=== PATIENT | male | born 1975 | race Caucasian/White ===

== ENCOUNTER 2024-12-02 14:56 | Emergency (ER) | payer MEDICAID, SELFPAY ==
[2024-12-02 15:04] VITALS: BP 143/97; PULSE 110; RESP 20; TEMP 36.8; O2SAT 95
--- NOTE | 2024-12-02 15:10 | PD.EDWOUND ---
ED Wound/Laceration-RME/HPI General Chief Complaint: Wound/Laceration Stated Complaint: Laceration to right arm Time Seen by Provider: 12/02/24 14:58 Arrival date/time: 12/02/24 14:56 RME / HPI RME / HPI narrative: 49-year-old male patient came in for evaluation regarding laceration to the right forearm. Patient was standing something, and sandpaper fell off resulting into 3 cm gaping laceration forearm volar aspect. Patient is able to bend and extend the wrist and the fingers without any limitation denies any other complaints. Incident happened few minutes prior to ER visit. Related Data Home Medications ?Medication ?Instructions ?Recorded ?Confirmed alprazolam 1 mg tablet 1 mg PO BID 08/05/17 06/07/21 amlodipine 5 mg tablet 5 mg PO QDAY 04/03/20 06/07/21 lisinopril 10 mg tablet 10 mg PO QDAY 04/03/20 06/07/21 paroxetine HCl 10 mg tablet 10 mg PO QDAY 04/03/20 06/07/21 Previous Rx's ?Medication ?Instructions ?Recorded ibuprofen 600 mg tablet 600 mg PO Q6H #30 tabs 11/21/23 cephalexin 500 mg capsule 500 mg PO TID 7 days #21 caps 12/02/24 ibuprofen 800 mg tablet 800 mg PO Q8H PRN pain #30 tabs 12/02/24 Allergies Allergy/AdvReac Type Severity Reaction Status Date / Time No Known Allergies Allergy Unverified 12/02/24 14:59 Review of Systems Review of Systems Narrative Review of Systems: Review of system reviewed and within normal limits except mentioned in HPI ED Exam Narrative Physical exam: VITAL SIGNS: Reviewed. GENERAL APPEARANCE: Alert and interactive, follows commands, no acute distress, HEAD AND FACE: Non-traumatic. ENT: PERRL, pink conjunctivitis, eyelid no trauma, Mucous membrane moist. NECK: Supple, nontender, no nuchal rigidity. RECTAL: Deferred. GENITAL: Deferred. NEUROLOGICAL: Gross motor function intact sensory function intact, Appropriate for age. MUSCULOSKELETAL: low back nontender, full range of motion. EXTREMITIES: +4 cm laceration gaping, forearm volar aspect, full range of motion. With the fingers and wrist and elbow SKIN: Color pink, dry, no rash, no lacerations, no abrasions, no contusions. LYMPHATICS: Deferred. Course Quality Measures none Orders Category Date Time Status Ibuprofen Tab [Motrin Tab] Med 12/02/24 15:09 Discontinued 800 mg PO X1 ONE Lidocaine 1% 20 ml [Xylocaine 1% 20 ML] Med 12/02/24 15:09 Discontinued 20 ml INFL X1 ONE TET,DIP/PERT AC (Adult)-Tdap [Boostrix Adult (Tdap) Med 12/02/24 15:09 Discontinued Vacc] 0.5 ml IMI .ONCE ONE Vital Signs Vital signs: Vital Signs Temperature 98.2 F 12/02/24 15:04 Pulse Rate 110 H 12/02/24 15:04 Respiratory Rate 20 12/02/24 15:04 Blood Pressure 143/97 H 12/02/24 15:04 Pulse Oximetry (%) 95 12/02/24 15:04 Oxygen Delivery Method Room Air 12/02/24 15:04 Procedures -ED Laceration Laceration 1: Site: upper extremity Size (cm): 4 Description: linear Depth: simple, single layer Amount of anesthesia used (mL): 6 Pre-repair: wound explored, irrigated extensively and deep structures intact Skin layer closed with: nylon Suture size (cm): 4-0 Number of sutures: 10 Technique: simple, interrupted Wound / Laceration MDM Narrative MDM Narrative:: 49-year-old male patient came in for evaluation regarding laceration to the right forearm. Patient was standing something, and sandpaper fell off resulting into 3 cm gaping laceration forearm volar aspect. Patient is able to bend and extend the wrist and the fingers without any limitation denies any other complaints. Incident happened few minutes prior to ER visit. Patient received Boostrix and Motrin. Repair and suturing was done by me see procedure notes Patient data External records reviewed:: None Clinical information provided by:: patient Social determinants that could affect healthcare access:: none Patient has the following chronic illnesses:: Hypertension, aanxiety How is presenting disease/condition affected by chronic disease/condition?: uneffected by Evaluation data The following diagnostics were reviewed and interpreted by me:: other (specify) Lab and/or radiology exams considered but not ordered:: None Interpretation Summary: None Medications / Prescriptions Medications or Prescriptions considered but not ordered:: none Medication administrations:: Medication Administration History Discontinued Medications Diphtheria/Tetanus/Acell Pertussis (Diphth,Pertuss(Acell),Tet Vac 0.5 Ml Syr- Adult) 0.5 ml IMi .ONCE ONE Stop: 12/02/24 15:10 Ibuprofen (Ibuprofen Tab 400 Mg Tablet) 800 mg PO X1 ONE Stop: 12/02/24 15:10 Lidocaine HCl (Lidocaine Hcl 1% 20 Ml Vial) 20 ml INFL X1 ONE Stop: 12/02/24 15:10 Motrin and Boostrix Consultations Consultation(s) initiated? (list below): No Diagnosis Wound Differential Diagnosis: laceration, abrasion and avulsion of skin Most likely diagnosis given after review of the tests above:: Forearm laceration Admission Indicated Admission indicated?: not indicated Admission Request Was there a request for admission?: No Disposition Plan Disposition Plan: Discharge Discharge Attestation Discharge Attestation: The patient and all family members were given an opportunity to ask questions and understood the discharge instructions. Discharge instructions specifically effects, indications for sooner follow up or return to the emergency department, and the expected course of current diagnosis. Patient condition: Stable Discharge Plan Plan Patient Disposition: HOME (Self Care) Discharge Disposition comment: Stable Prescriptions/Referrals Prescriptions/Med Rec: New cephalexin 500 mg capsule 500 mg PO TID 7 Days Qty: 21 0RF ibuprofen 800 mg tablet 800 mg PO Q8H PRN (Reason: pain) Qty: 30 0RF No Action alprazolam 1 mg tablet 1 mg PO BID lisinopril 10 mg tablet 10 mg PO QDAY amlodipine 5 mg tablet 5 mg PO QDAY paroxetine HCl 10 mg tablet 10 mg PO QDAY ibuprofen 600 mg tablet 600 mg PO Q6H Qty: 30 0RF Referrals: Caleb([facility])Javier NP [Primary Care Provider] - In 1 week Problem List Clinical Impression: Forearm laceration Patient/Caregiver Discharge Instructions Discharge Activity: activity as tolerated Education Materials: ED Laceration: All Closures Additional Instructions: Thank you for the opportunity for serving you today. You are stable for discharged . You are advised to: Follow-up with your PCP in 1 to 2 days Return to ED for worsening of symptoms Increase oral fluids Take medication as prescribed Daily dressing with bacitracin as needed For removal of sutures in 7 to 10 days Print Language: Khmer Stand Alone Forms: [facility] Award Info., Patient Portal Info Letter
[2024-12-02] MEDS: LIDOCAINE HCL 1% 20 ML VIAL INFL (15:43)
== END 2024-12-02 15:52 | disposition home or self-care (01) ==
PROVIDERS: Emergency Provider Emergency Medicine; PCP Nurse Practitioner Family
DX: S51.811A Laceration without foreign body of right forearm, initial encounter (principal); W22.8XXA Striking against or struck by other objects, initial encounter
CPT/HCPCS: 12002; 99283; J3490

== ENCOUNTER 2025-06-03 14:10 | Emergency (ER) | payer MEDICAID, SELFPAY ==
[2025-06-03 14:12] VITALS: BMI 26.6
--- NOTE | 2025-06-03 14:39 | EDNOTE_ITS ---
<Statement entered by Kayla Tamez MD - 06/04/25 17:50> As co-signing physician, I was present and available for consult prn. I concur with the plan and care as documented by the midlevel provider. ED Male Genitalurinary RME/HPI General Chief complaint: Urogenital-Male Stated complaint: DYSURIA, POLYURIA, PENILE DISCHARGE X30 MINS. Time Seen by Provider: 06/03/25 14:25 Source: patient, RN notes reviewed and old records reviewed Arrival date/time: 06/03/25 14:10 Mode of arrival: ambulatory Limitations: no limitations RME / HPI RME / HPI Narrative: 50yom with pmhx BPH, HTN, anxiety presents to ED for dysuria and penile discharge x30 minutes. Hx of UTIs, has seen Dr. Jha in the past. No fever, nausea/vomiting, abdominal/flank pain, hematuria or rash/lesion reported. No medications or treatments since onset. Related Data Home Medications ?Medication ?Instructions ?Recorded ?Confirmed alprazolam 1 mg tablet 1 mg PO BID 08/05/17 1 amlodipine 5 mg tablet 5 mg PO QDAY 04/03/20 lisinopril 10 mg tablet 10 mg PO QDAY 04/03/2006/07 paroxetine HCl 10 mg tablet 10 mg PO QDAY 04/03/20 Previous Rx's ?Medication ?Instructions ?Recorded ibuprofen 600 mg tablet 600 mg PO Q6H #30 tabs 11/20 ibuprofen 800 mg tablet 800 mg PO Q8H PRN pain #30 t abs 12/02/24 doxycycline hyclate 100 mg capsule 100 mg PO BID 7 day s #14 caps 06/03/25 Allergies Allergy/AdvReac Type Severity Reaction Status Date / Time No Known Allergies Allergy Verified 06/03/25 14:14 Review of Systems Review of Systems Systems Reviewed: All systems reviewed, normal except as documented Constitutional Constitutional: Denies chills and Denies fever(s) Gastrointestinal Gastrointestinal: Denies abdominal pain, Denies nausea and Denies vomiting Genitourinary Genitourinary: Reports dysuria, Denies flank pain, Denies genital lesions, Denies hematuria, Reports penile discharge and Denies scrotal swelling Past Medical History Past Medical History CARDIAC: Positive Hypertension GENITOURINARY: Positive Benign Prostatic Hyperplasia PSYCHO/SOCIAL: Positive Anxiety Surgical History OTHER SURGICAL HX: umbilical hernia repair Social History SMOKING STATUS: Current some day smoker SUBSTANCE USE: does not use ALCOHOL: Current (daily) ED Exam General Limitations: Present no limitations General appearance: Present alert and in no apparent distress Head Head exam: Present atraumatic and normocephalic Eye Eye exam: Present normal appearance, PERRL and EOMI ENT ENT exam: Present normal exam and mucous membranes moist Neck Neck exam: Present normal inspection and full ROM Chest Chest inspection: Present normal inspection and symmetric chest wall rise Respiratory Respiratory exam: Present normal lung sounds bilaterally; Absent respiratory distress Cardiovascular Cardiovascular exam: Present regular rate and normal rhythm Abdominal Exam Abdominal exam: Present soft; Absent distention, tenderness, guarding or rebound Extremities Exam Extremities exam: Present normal inspection and full ROM Back Exam Back exam: Absent CVA tenderness (R) or CVA tenderness (L) Neurological Exam Neurological exam: Present alert and oriented X3 Psychiatric Psychiatric exam: Present normal affect and normal mood Skin Skin exam: Present warm, dry, intact and normal color Course Quality Measures none Orders Category Date Time Status Chlamydia/GC/TV - PCR Stat Lab 06/03/25 15:05 Completed UA [Urinalysis] Stat Lab 06/03/25 15:05 Completed Urine Culture Stat Lab 06/03/25 15:05 Received [id number] [Rocephin] 500 mg Med 06/03/25 14:40 Discontinued Lidocaine 1% Pf Vial 5ml [Xylocaine 1% Pf 5 ml] 1 ml IM X1 Vital Signs Vital signs: Vital Signs Temperature 98.2 F 06/03/25 14:42 Pulse Rate 97 06/03/25 14:42 Respiratory Rate 18 06/03/25 14:42 Blood Pressure 132/86 H 06/03/25 14:42 Pulse Oximetry (%) 97 06/03/25 14:42 Oxygen Delivery Method Room Air 06/03/25 14:42 Urogenital - Male MDM Narrative MDM Narrative:: 50yom with pmhx BPH, HTN, anxiety presents to ED for dysuria and penile discharge x30 minutes. Hx of UTIs, has seen Dr. Jha in the past. No fever, nausea/vomiting, abdominal/flank pain, hematuria or rash/lesion reported. No medications or treatments since onset. Patient treated empirically for STDs, GC and urine culture sent and pending. UA negative. Encourage close follow-up with Dr. Edwards if symptoms persist or worsen. Stable for discharge, RTED precautions given Patient data External records reviewed:: [facility] previous records (12/02/2024 ED visit for forearm laceration) Clinical information provided by:: patient Social determinants that could affect healthcare access:: other (specify) (Poor access to healthcare) Patient has the following chronic illnesses:: BPH, anxiety How is presenting disease/condition affected by chronic disease/condition?: exacerbated by Evaluation data The following diagnostics were reviewed and interpreted by me:: lab results Lab and/or radiology exams considered but not ordered:: CT abdomen/pelvis: Do not suspect pyelonephritis or kidney stone Interpretation Summary: UA negative Medications / Prescriptions Medications or Prescriptions considered but not ordered:: None Medication administrations:: Medication Administration History Discontinued Medications Ceftriaxone Sodium 500 mg/ (Lidocaine HCl 1 ml) 0 mg IM X1 ONE Stop: 06/03/25 14:41 Last Admin: 06/03/25 15:05 Dose: 500 mg Documented By: Above medication administered in ED Consultations Consultation(s) initiated? (list below): No Diagnosis Urogenital Male Differential Diagnosis: urinary tract infection, urethritis, epididymitis, prostatitis and acute retention of urine Most likely diagnosis given after review of the tests above:: Dysuria Admission Indicated Admission indicated?: not indicated Admission Request Was there a request for admission?: No Disposition Plan Disposition Plan: Discharge Discharge Attestation Discharge Attestation: The patient and all family members were given an opportunity to ask questions and understood the discharge instructions. Discharge instructions specifically effects, indications for sooner follow up or return to the emergency department, and the expected course of current diagnosis. Patient condition: Stable Discharge Plan Plan Patient Disposition: HOME (Self Care) Patient condition on transfer: Stable Prescriptions/Referrals Prescriptions/Med Rec: New doxycycline hyclate 100 mg capsule 100 mg PO BID 7 Days Qty: 14 0RF No Action alprazolam 1 mg tablet 1 mg PO BID lisinopril 10 mg tablet 10 mg PO QDAY amlodipine 5 mg tablet 5 mg PO QDAY paroxetine HCl 10 mg tablet 10 mg PO QDAY ibuprofen 800 mg tablet 800 mg PO Q8H PRN (Reason: pain) Qty: 30 0RF ibuprofen 600 mg tablet 600 mg PO Q6H Qty: 30 0RF Referrals: Tye Dobbins MD [Primary Care Provider] - In 1 week Problem List Clinical Impression: Dysuria, Screen for STD (sexually transmitted disease) Patient/Caregiver Discharge Instructions Education Materials: Dysuria Print Language: French Stand Alone Forms: [facility] Award Info., Patient Portal Info Letter PA/LATHE TURNER Supervising Physician PA/LATHE TURNER Supervising Physician: Joi
[2025-06-03 14:42] VITALS: BP 132/86; PULSE 97; RESP 18; TEMP 36.8; O2SAT 97
[2025-06-03 15:26] LABS: Collection Type, Urine Clean Catch; Squamous Epithelial Cell,Urine 0 /hpf (0-5)
[2025-06-03 16:27] LABS: Bilirubin,Urine Negative (Negative); Blood,Urine Negative (Negative); Color,Urine Yellow (Lt Yel-Yel); Glucose, Urine Negative (Negative); Ketones,Urine Negative (Negative); Leukocyte Esterase,Urine Negative (Negative); Nitrite,Urine Negative (Negative); PH,Urine 6.0 (5.0-7.0); Protein,Urine 2+ (Neg - Trace); RBC,Urine 3 /hpf (0-3); Specific Gravity,Urine 1.027 (1.001-1.035); Urobilinogen,Urine Negative mg/dL (0.0-1.0); WBC,Urine 1 /hpf (0-5)
[2025-06-03 16:32] LABS: Clarity,Urine Hazy (Clear/Hazy)
[2025-06-03 17:42] LABS: Chlamydia trachomatis PCR Negative (Not Detect); Neisseria Gonorrhoeae DNA PCR Negative (Not Detect); Trichomonas Negative (Negative)
== END 2025-06-03 16:53 | disposition home or self-care (01) ==
PROVIDERS: Physician Assistant; Emergency Provider Emergency Medicine; PCP Student in an Organized Health Care Education/Training Program
DX: Z11.3 Encounter for screening for infections with a predominantly sexual mode of transmission (principal); R30.0 Dysuria
CPT/HCPCS: 81001; 87086; 87491; 87591; 87661; 96372; 99282; J0696; J3490